=== PATIENT | male | born 1980 | race African-American/Black ===

== ENCOUNTER 2018-04-23 08:12 | Emergency (ER) | payer SELFPAY ==
--- NOTE | 2018-04-23 10:55 | EDM.PDOCBH ---
ED HPI GENERAL MEDICAL PROBLEM - General Chief Complaint: Behavioral/Psych Stated Complaint: MENTAL STATUS Time Seen by Provider: 04/23/18 08:14 Source of Information: Reports: Patient, EMS, Police History Limitations: Reports: No Limitations - History of Present Illness INITIAL COMMENTS - FREE TEXT/NARRATIVE: 38 y.o. [place] male came by police and EMS to the ED because the patient's room mate called 911 the Patient is acting weird, not normal. As the patient arrived here, pt was not cooperative refusing any kind of test. Pt was Ox3 and is ambulating well. He requested to call the police or his room made to pick him up and bring him home. From home, he will contact his family in [place] to pick him up. Pt denies any pain. Sometime he does not answer questions. No N/V/ D or any other acute medical issues. BP 149/89 RR 18 Pulse ox 99% on RA Pulse 95 Temp 36.9 Onset Date: 04/23/18 Onset Time: 06:00 Duration: Hour(s):, Intermittent Location: Reports: Generalized Quality: Reports: Other Improves with: Reports: Other Worsens with: Reports: Other Context: Reports: Other Associated Symptoms: Reports: No Other Symptoms - Related Data Allergies Allergy/AdvReac Type Severity Reaction Status Date / Time No Known Allergies Allergy Verified 04/23/18 09:19 Home Meds: Home Meds NK [No Known Home Meds] 03/05/18 [History] Past Medical History - Past Health History Medical/Surgical History: Denies Medical/Surgical History Social & Family History - Family History Family Medical History: Noncontributory - Caffeine Use Caffeine Use: Reports: None ED ROS GENERAL - Review of Systems Review Of Systems: Unable To Obtain (refused to cooperate) ED EXAM, BEHAVIORAL HEALTH - Physical Exam Exam: See Below Exam Limited By: Uncooperative General Appearance: Alert, WD/WN, No Apparent Distress Eye Exam: Bilateral Eye: Normal Inspection Ears: Normal External Exam Nose: Normal Inspection Throat/Mouth: Normal Inspection Head: Atraumatic Neck: Normal Inspection Respiratory/Chest: No Respiratory Distress Cardiovascular: Normal Peripheral Pulses GI/Abdominal: Normal Bowel Sounds (Male) Exam: Deferred Rectal (Males) Exam: Deferred Back Exam: Normal Inspection, Full Range of Motion Extremities: Normal Inspection, Normal Range of Motion Neurological: Alert, Normal Mood/Affect, CN II-XII Intact, Normal Cognition, Normal Gait Psychiatric: Alert, Normal Affect, Normal Cognition, Normal Mood Skin Exam: Warm, Dry, Intact, Normal color, No rash COURSE, BEHAVIORAL HEALTH COMP - Course Vital Signs: Last Vital Signs Temp 36.9 C 04/23/18 08:14 Pulse 95 04/23/18 08:14 Resp 18 04/23/18 08:14 BP 149/98 H 04/23/18 08:14 Pulse Ox 99 04/23/18 08:14 38 y.o. [place] male came by police and EMS to the ED because the patient's room mate called 911 the Patient is acting weird, not normal. As the patient arrived here, pt was not cooperative refusing any kind of test. Pt was Ox3 and is ambulating well. He requested to call the police or his room made to pick him up and bring him home. From home, he will contact his family in [place] to pick him up. Pt denies any pain. Sometime he does not answer questions. No N/V/ D or any other acute medical issues. BP 149/89 RR 18 Pulse ox 99% on RA Pulse 95 Temp 36.9 PE: WNWD [place] male in NAD, refusing any tests and tx Impression: Uncooperative, Signed out AMA Tx: none Reexam: Pt was stable while here in the ed, his room mate arrived, pt signed out AMA, his room mate took him pack to his apartment Plan: D/C as per AMA to home Departure - Departure Time of Disposition: 09:00 Disposition: Against Medical Advice 07 Condition: Good Clinical Impression: Uncooperative behavior - Discharge Information Referrals: PCP,None [Primary Care Provider] - Forms: ED Department Discharge
== END 2018-04-23 09:20 | disposition left against medical advice (07) ==
LOC: FB.ED 08:12
DX: Z91.19 Patient's noncompliance with other medical treatment and regimen (principal)
CPT/HCPCS: 99283; 99284